=== PATIENT | female | born 1990 | race Caucasian/White ===

== ENCOUNTER 2016-12-06 17:10 | Emergency (ER) | payer SELFPAY ==
[2016-12-06 17:21] VITALS: BP 139/75; RESP 18; TEMP 97.6; O2SAT 98
--- NOTE | 2016-12-06 17:29 | ED PDOC ---
HPI: Wound Care - HPI Time Seen by Provider: 12/06/16 17:18 Chief Complaint (Nursing): Wound Check Chief Complaint (Provider): Suture removal History Per: Patient History Of Present Illness: Pt. states on 11/19/16 she had sutures placed on her R great toe. Pt. is here for suture removal. Reports no ligament involvement. Denies pain, fever, discharge. Past Medical History Reviewed: Historical Data, Nursing Documentation, Vital Signs Vital Signs: Last Vital Signs Temp 97.6 F 12/06/16 17:19 Pulse 94 H 12/06/16 17:19 Resp 18 12/06/16 17:19 BP 139/75 12/06/16 17:19 Pulse Ox 98 12/06/16 17:19 - Family History Family History: States: No Known Family Hx - Allergies Allergies/Adverse Reactions: Allergies Allergy/AdvReac Type Severity Reaction Status Date / Time No Known Allergies Allergy Verified 12/06/16 17:18 Review of Systems ROS Statement: Except As Marked, All Systems Reviewed And Found Negative Physical Exam - Physical Exam Appears: Positive for: Well, Non-toxic, No Acute Distress Extremity: Positive for: Normal ROM, Other (R great toe with FROM actively; [address] with 2 sutures in middle with slight dehisence) - ECG O2 Sat by Pulse Oximetry: 98 - Progress ED Course And Treament: 2 sutures removed without difficulty. Pt. instructed to return to ED in 2 days for suture removal. Disposition - Clinical Impression Clinical Impression: Visit for suture removal - Patient ED Disposition Is Patient to be Admitted: No - Disposition Disposition: Routine/Home Disposition Time: 17:31 Condition: STABLE Additional Instructions: Return to ED in 2 days for suture removal. Instructions: Stitches Removal (ED)
[2016-12-06 17:53] VITALS: PULSE 84
== END 2016-12-06 17:35 | disposition home or self-care (01) ==
LOC: H.ER 17:10
DX: Z48.02 Encounter for removal of sutures (principal)

== ENCOUNTER 2016-12-24 13:10 | Emergency (ER) | payer OTHER ==
[2016-12-24 13:22] VITALS: BP 150/95; PULSE 80; RESP 18; TEMP 98; O2SAT 99
--- NOTE | 2016-12-24 13:33 | ED PDOC ---
HPI: Wound Care - HPI Time Seen by Provider: 12/24/16 13:29 Chief Complaint (Nursing): Wound Check Chief Complaint (Provider): WOUND CHECK History Per: Patient (26 YO FEMALE HERE FOR SUTURE REMOVAL. HAS HAD SUTURES PLACED 11/19/2016 AFTER LACERATION ON TOE. STATES SHE RETURNED AND HAD 2 SUTURES REMOVED. WAS ADVISED TO RETURN SHORTLY AFTER BUT DID NOT. DENIES ANY FEVERS/CHILLS/PAIN.) Past Medical History Reviewed: Historical Data, Nursing Documentation, Vital Signs Vital Signs: Last Vital Signs Temp 98 F 12/24/16 13:19 Pulse 80 12/24/16 13:19 Resp 18 12/24/16 13:19 BP 150/95 H 12/24/16 13:19 Pulse Ox 99 12/24/16 13:19 - Family History Family History: States: No Known Family Hx - Home Medications Home Medications: Ambulatory Orders Medication Instructions Recorded Cephalexin [Keflex] 1 tab PO QID #28 capsule 12/24/16 - Allergies Allergies/Adverse Reactions: Allergies Allergy/AdvReac Type Severity Reaction Status Date / Time No Known Allergies Allergy Verified 12/06/16 17:18 Review of Systems ROS Statement: Except As Marked, All Systems Reviewed And Found Negative Physical Exam - Reviewed Nursing Documentation Reviewed: Yes Vital Signs Reviewed: Yes - Physical Exam Appears: Positive for: Well, Non-toxic, No Acute Distress Head Exam: Positive for: ATRAUMATIC, NORMAL INSPECTION, NORMOCEPHALIC Skin: Positive for: Normal Color, Warm, DRY Eye Exam: Positive for: EOMI, Normal appearance, PERRL ENT: Positive for: Normal ENT Inspection Neck: Positive for: Normal, Painless ROM Cardiovascular/Chest: Positive for: Regular Rate, Rhythm Respiratory: Positive for: CNT, Normal Breath Sounds Gastrointestinal/Abdominal: Positive for: Normal Exam, Bowel Sounds, Soft Back: Positive for: Normal Inspection Extremity: Positive for: Normal ROM, Other (PRULULENT DISCHARGE NOTED IN REGION OF SUTURE (2 SUTURE INTACT) NO ERYTHEMA OF WOUND) Neurologic/Psych: Positive for: Alert, Oriented - ECG O2 Sat by Pulse Oximetry: 99 - Progress ED Course And Treament: VERBAL CONSENT OBTAINED SUTURES REMOVED WITHOUT DIFFICULTY Disposition - Clinical Impression Clinical Impression: Visit for suture removal - Patient ED Disposition Is Patient to be Admitted: No - Disposition Disposition: Routine/Home Disposition Time: 13:33 Condition: FAIR Prescriptions: Cephalexin [Keflex] 1 tab PO QID #28 capsule Instructions: Stitches Removal (ED)
== END 2016-12-24 13:57 | disposition home or self-care (01) ==
LOC: H.ER 13:10
DX: Z48.02 Encounter for removal of sutures (principal)

== ENCOUNTER 2017-10-21 08:23 | Emergency (ER) | payer OTHER ==
[2017-10-21 08:26] VITALS: BMI 38.7
[2017-10-21 08:28] VITALS: BP 125/70; PULSE 111; RESP 20; TEMP 100.2; O2SAT 98
== END 2017-10-21 09:37 | disposition left against medical advice (07) ==
LOC: H.ER 08:23
DX: Z02.89 Encounter for other administrative examinations (principal)